=== PATIENT | male | born 1985 | race Caucasian/White ===

== ENCOUNTER 2021-02-12 14:48 | Inpatient (IN) | payer OTHER ==
[~2021-02-12 14:48] MED LIST: ceFAZolin SODIUM 1 GM VIAL IVPB ONE
[2021-02-12 17:31] LABS: BASO % 0.7 % (0-2.0); EOS % 5.3 % (0-4.5); HEMATOCRIT 20.5 % (35.4-49); HEMOGLOBIN 7.2 GM/dL (11.7-16.9); LYMPH % 10.6 % (8-40); MCH 27.6 pg (25.7-33.7); MEAN CELL VOLUME 78.9 fl (80-96); MEAN PLT VOLUME 6.8 fl (7.5-11.1); MONO % 6.5 % (3.8-10.2); NEUT % 76.9 % (42.8-82.8); PLATELET COUNT 183 K/MM3 (134-434); RDW 15.6 % (11.9-15.9); WHITE BLOOD COUNT 5.6 K/mm3 (4.0-10.0)
[2021-02-12] MEDS ORDERED: LIDOCAINE HCL 1%, 10 MG/ML (20ML VIAL) ONE (17:35)
[2021-02-12 17:42] LABS: INR 0.96 (0.83-1.09); PROTHROMBIN TIME (PATIENT) 11.6 SEC (9.7-13.0)
[2021-02-12 17:45] LABS: ACTIVATED PTT 30.1 SECONDS (25.2-36.5)
[2021-02-12 17:50] LABS: CHLORIDE 104 mmol/L (98-107); POTASSIUM 4.3 mmol/L (3.5-5.1); SODIUM 140 mmol/L (136-145)
[2021-02-12 17:52] LABS: CALCIUM 8.7 mg/dL (8.5-10.1)
[2021-02-12 17:53] LABS: ALBUMIN 3.9 g/dl (3.4-5.0); ANION GAP 15 MMOL/L (8-16); CO2 22 mmol/L (21-32); GLUCOSE,RANDOM 94 mg/dL (74-106)
[2021-02-12 17:56] LABS: SGOT/AST 5 U/L (15-37); SGPT/ALT 13 U/L (13-61)
[2021-02-12 17:57] LABS: BILIRUBIN,TOTAL 0.5 mg/dL (0.2-1)
[2021-02-12 17:58] LABS: TOT PROT 7.2 g/dl (6.4-8.2)
[2021-02-12 17:59] LABS: ALK PHOS 70 U/L (45-117)
[2021-02-12 18:06] LABS: BLOOD UREA NITROGEN 121.4 mg/dL (7-18); CREATININE 16.2 mg/dL (0.55-1.3)
[2021-02-12] MEDS ORDERED: MIDAZOLAM HCL 2 MG/2 ML SINGLE DOSE VIAL ONE (19:49)
[2021-02-12] MEDS ORDERED: KETAMINE HCL 200 MG/20 ML VIAL ONE (19:50)
[2021-02-12] MEDS ORDERED: ceFAZolin SODIUM 1 GM VIAL ONE (19:54)
[2021-02-12] MEDS: oxyCODONE HCL 5 MG TABLET PO PRN (21:46)
[2021-02-12] MEDS ORDERED: ONDANSETRON 4 MG/2 ML VIAL IVPUSH PRN (22:17)
[2021-02-12 22:54] LABS: PHOSPHOROUS 7.1 mg/dL (2.5-4.9)
[2021-02-13] MEDS ORDERED: LIDOCAINE HCL/PF 2% SDV 5ML VIAL ONE (00:30)
[2021-02-13] MEDS: ACETAMINOPHEN 325 MG TABLET (FP) PO PRN (00:52)
[2021-02-13] MEDS: oxyCODONE HCL 5 MG TABLET PO PRN (02:56)
[2021-02-13] MEDS ORDERED: methylPREDNISolone NA SUCC 125 MG/2 ML VIAL ONE (08:08)
[2021-02-13] MEDS ORDERED: EPINEPHrine/PF 1 MG/1 ML (1:1,000) AMPULE ONE (08:10)
[2021-02-13] MEDS ORDERED: EPINEPHrine/PF 1 MG/1 ML (1:1,000) AMPULE IM ONE ×3 (08:22)
[2021-02-13] MEDS ORDERED: methylPREDNISolone NA SUCC 125 MG/2 ML VIAL IVPUSH ONE (08:22)
[2021-02-13] MEDS ORDERED: ONDANSETRON 4 MG/2 ML VIAL IVPB ONE (08:51)
[2021-02-13] MEDS ORDERED: FAMOTIDINE 20 MG/50 ML IVPB 20 MG/50 ML MG IVPB ONE (08:51)
[2021-02-13] MEDS: amLODIPine BESYLATE 10 MG TABLET (FP) PO SCH (10:00)
[2021-02-13] MEDS: LABETALOL HCL 200 MG TABLET (FP) PO SCH ×2 (10:00→21:57)
[2021-02-13] MEDS ORDERED: SODIUM CHLORIDE 250 ML IV PRN ×2 (11:38→11:39)
[2021-02-13 11:55] LABS: BASO % 0.2 % (0-2.0); EOS % 0.5 % (0-4.5); HEMATOCRIT 20.8 % (35.4-49); HEMOGLOBIN 7.4 GM/dL (11.7-16.9); LYMPH % 3.7 % (8-40); MCH 27.9 pg (25.7-33.7); MCHC 35.7 g/dl (32.0-35.9); MEAN PLT VOLUME 6.8 fl (7.5-11.1); MONO % 2.5 % (3.8-10.2); NEUT % 93.1 % (42.8-82.8); PLATELET COUNT 180 K/MM3 (134-434); RBC 2.66 M/mm3 (4.00-5.60); RDW 15.9 % (11.9-15.9); RETICULOCYTES 1.32 % (0.5-1.5); WHITE BLOOD COUNT 11.6 K/mm3 (4.0-10.0)
[2021-02-13 12:24] LABS: CHLORIDE 106 mmol/L (98-107); POTASSIUM 4.5 mmol/L (3.5-5.1); SODIUM 137 mmol/L (136-145)
[2021-02-13 12:25] LABS: ANISOCYTOSIS 3+; MACROCYTOSIS 0; PLATELET ESTIMATE NORMAL
[2021-02-13 12:27] LABS: ANION GAP 11 MMOL/L (8-16); CALCIUM 8.5 mg/dL (8.5-10.1); CO2 19 mmol/L (21-32)
[2021-02-13 12:28] LABS: ALBUMIN 3.5 g/dl (3.4-5.0); GLUCOSE,RANDOM 126 mg/dL (74-106)
[2021-02-13 12:31] LABS: SGOT/AST 9 U/L (15-37); SGPT/ALT 11 U/L (13-61)
[2021-02-13 12:32] LABS: TOT PROT 6.8 g/dl (6.4-8.2)
[2021-02-13 12:33] LABS: ALK PHOS 73 U/L (45-117)
[2021-02-13 12:46] LABS: BILIRUBIN,TOTAL 0.6 mg/dL (0.2-1); BLOOD UREA NITROGEN 123.5 mg/dL (7-18); CREATININE 16.9 mg/dL (0.55-1.3)
[2021-02-13] MEDS: methylPREDNISolone NA SUCC 40 MG/1 ML VIAL IVPUSH SCH ×2 (13:39→21:58)
[2021-02-13] MEDS ORDERED: HYDROmorphone HCl 2 MG/ML VIAL IVPUSH ONE (21:37)
[2021-02-13] MEDS ORDERED: ASPIRIN 81 MG CHEWABLE TABLETS PO ONE (21:45)
[2021-02-13 22:51] LABS: CHLORIDE 99 mmol/L (98-107); POTASSIUM 3.6 mmol/L (3.5-5.1); SODIUM 136 mmol/L (136-145)
[2021-02-13 22:53] LABS: ANION GAP 13 MMOL/L (8-16); CALCIUM 8.7 mg/dL (8.5-10.1); CO2 24 mmol/L (21-32)
[2021-02-13 22:54] LABS: GLUCOSE,RANDOM 145 mg/dL (74-106)
[2021-02-13 23:08] LABS: BLOOD UREA NITROGEN 73.8 mg/dL (7-18); CREATININE 9.9 mg/dL (0.55-1.3)
[2021-02-13] MEDS ORDERED: amLODIPine BESYLATE 10 MG TABLET (FP) PO ONE (23:17)
[2021-02-14] MEDS ORDERED: oxyCODONE HCL 5 MG TABLET ONE (00:38)
[2021-02-14] MEDS: ACETAMINOPHEN 325 MG TABLET (FP) PO PRN ×3 (00:40→22:19)
[2021-02-14] MEDS ORDERED: LORazepam 2 MG/ML SDV VIAL IVPUSH ONE (02:09)
[2021-02-14] MEDS: methylPREDNISolone NA SUCC 40 MG/1 ML VIAL IVPUSH SCH ×3 (06:27→22:15)
[2021-02-14 07:04] LABS: BASO % 0.1 % (0-2.0); HEMATOCRIT 16.6 % (35.4-49); LYMPH % 3.7 % (8-40); MCH 28.5 pg (25.7-33.7); MCHC 36.7 g/dl (32.0-35.9); MEAN CELL VOLUME 77.4 fl (80-96); MEAN PLT VOLUME 7.3 fl (7.5-11.1); MONO % 1.6 % (3.8-10.2); NEUT % 94.6 % (42.8-82.8); PLATELET COUNT 131 K/MM3 (134-434); RBC 2.14 M/mm3 (4.00-5.60); RDW 15.4 % (11.9-15.9); WHITE BLOOD COUNT 7.1 K/mm3 (4.0-10.0)
[2021-02-14 07:09] LABS: HEMOGLOBIN 6.1 GM/dL (11.7-16.9)
[2021-02-14 07:24] LABS: CHLORIDE 100 mmol/L (98-107); POTASSIUM 4.2 mmol/L (3.5-5.1); SODIUM 137 mmol/L (136-145)
[2021-02-14 07:26] LABS: CALCIUM 8.3 mg/dL (8.5-10.1)
[2021-02-14 07:27] LABS: ALBUMIN 3.2 g/dl (3.4-5.0); ANION GAP 10 MMOL/L (8-16); BLOOD UREA NITROGEN 83.7 mg/dL (7-18); CO2 27 mmol/L (21-32); GLUCOSE,RANDOM 136 mg/dL (74-106); MAGNESIUM 1.9 mg/dL (1.8-2.4)
[2021-02-14 07:30] LABS: SGOT/AST 9 U/L (15-37); SGPT/ALT 9 U/L (13-61)
[2021-02-14 07:31] LABS: BILIRUBIN,TOTAL 0.5 mg/dL (0.2-1); TOT PROT 6.1 g/dl (6.4-8.2)
[2021-02-14 07:33] LABS: ALK PHOS 57 U/L (45-117)
[2021-02-14 07:47] LABS: CREATININE 11.2 mg/dL (0.55-1.3)
[2021-02-14] MEDS: LABETALOL HCL 200 MG TABLET (FP) PO SCH ×2 (09:19→22:18)
[2021-02-14] MEDS: amLODIPine BESYLATE 10 MG TABLET (FP) PO SCH (09:19)
[2021-02-14 09:57] LABS: ANISOCYTOSIS 0; MACROCYTOSIS 0; PLATELET ESTIMATE DECREASED
[2021-02-14] MEDS ORDERED: EPOETIN ALFA-EPBX 3,000 UNIT/ML VIAL SQ ONE (13:15)
[2021-02-14] MEDS ORDERED: DESMOPRESSIN ACETATE 4 MCG/ML AMP IVPB STA (15:29)
[2021-02-14 19:40] LABS: HEMATOCRIT 20.3 % (35.4-49); MCH 28.4 pg (25.7-33.7); MCHC 34.5 g/dl (32.0-35.9); MEAN CELL VOLUME 82.5 fl (80-96); MEAN PLT VOLUME 6.8 fl (7.5-11.1); PLATELET COUNT 171 K/MM3 (134-434); RBC 2.46 M/mm3 (4.00-5.60); RDW 16.6 % (11.9-15.9); WHITE BLOOD COUNT 13.9 K/mm3 (4.0-10.0)
[2021-02-14] MEDS: oxyCODONE HCL 5 MG TABLET PO PRN (22:18)
[2021-02-15] MEDS ORDERED: LORazepam 2 MG/ML SDV VIAL IVPB ONE (03:30)
[2021-02-15] MEDS ORDERED: LORazepam 2 MG/ML SDV VIAL ONE (03:46)
[2021-02-15] MEDS ORDERED: PT OWN MED DRAWER 7, Y5N ONE (07:09)
[2021-02-15] MEDS: methylPREDNISolone NA SUCC 40 MG/1 ML VIAL IVPUSH SCH (09:09)
[2021-02-15] MEDS: LABETALOL HCL 200 MG TABLET (FP) PO SCH ×3 (09:10→21:23)
[2021-02-15] MEDS: amLODIPine BESYLATE 10 MG TABLET (FP) PO SCH (09:10)
[2021-02-15 09:39] LABS: BASO % 0.1 % (0-2.0); HEMATOCRIT 21.2 % (35.4-49); HEMOGLOBIN 7.4 GM/dL (11.7-16.9); LYMPH % 4.7 % (8-40); MCH 29.1 pg (25.7-33.7); MCHC 35.1 g/dl (32.0-35.9); MEAN PLT VOLUME 7.5 fl (7.5-11.1); MONO % 7.6 % (3.8-10.2); NEUT % 87.6 % (42.8-82.8); PLATELET COUNT 184 K/MM3 (134-434); RBC 2.56 M/mm3 (4.00-5.60); RDW 16.7 % (11.9-15.9); WHITE BLOOD COUNT 7.9 K/mm3 (4.0-10.0)
[2021-02-15 09:59] LABS: ALBUMIN 3.3 g/dl (3.4-5.0); CALCIUM 8.3 mg/dL (8.5-10.1); MAGNESIUM 1.7 mg/dL (1.8-2.4)
[2021-02-15 10:03] LABS: CREATININE 6.8 mg/dL (0.55-1.3); PHOSPHOROUS 6.6 mg/dL (2.5-4.9)
[2021-02-15 10:04] LABS: BILIRUBIN,TOTAL 1.1 mg/dL (0.2-1); TOT PROT 6.2 g/dl (6.4-8.2)
[2021-02-15 10:05] LABS: BLOOD UREA NITROGEN 45.6 mg/dL (7-18)
[2021-02-15] MEDS ORDERED: MAGNESIUM SULFATE IN WATER 2 GM/50 ML IVPB IVPB ONE (12:00)
[2021-02-15 12:08] LABS: BASO % 0.1 % (0-2.0); HEMATOCRIT 21.1 % (35.4-49); HEMOGLOBIN 7.5 GM/dL (11.7-16.9); LYMPH % 4.6 % (8-40); MCH 29.6 pg (25.7-33.7); MCHC 35.6 g/dl (32.0-35.9); MEAN CELL VOLUME 82.9 fl (80-96); MEAN PLT VOLUME 7.5 fl (7.5-11.1); MONO % 8.6 % (3.8-10.2); NEUT % 86.7 % (42.8-82.8); PLATELET COUNT 187 K/MM3 (134-434); RBC 2.54 M/mm3 (4.00-5.60); RDW 16.4 % (11.9-15.9); WHITE BLOOD COUNT 7.3 K/mm3 (4.0-10.0)
[2021-02-15] MEDS: oxyCODONE HCL 5 MG TABLET PO PRN ×2 (13:11→21:23)
[2021-02-15] MEDS ORDERED: SEVELAMER CARBONATE 800 MG TAB (FP) PO SCH (14:00)
[2021-02-15] MEDS ORDERED: ONDANSETRON 4 MG/2 ML VIAL IVPUSH PRN (14:37)
[2021-02-15] MEDS ORDERED: ACETAMINOPHEN 325 MG TABLET (FP) PO PRN ×2 (14:37)
[2021-02-15] MEDS: SEVELAMER CARBONATE 800 MG TAB (FP) PO SCH (18:09)
[2021-02-15 22:42] VITALS: BMI 17.9
[2021-02-15] MEDS ORDERED: MELATONIN 5 MG TABLETS PO ONE (23:09)
[2021-02-16] MEDS: LABETALOL HCL 200 MG TABLET (FP) PO SCH ×3 (05:55→21:33)
[2021-02-16] MEDS: oxyCODONE HCL 5 MG TABLET PO PRN ×4 (05:55→23:15)
[2021-02-16 07:56] LABS: BASO % 0.1 % (0-2.0); HEMATOCRIT 22.6 % (35.4-49); LYMPH % 6.1 % (8-40); MCH 29.3 pg (25.7-33.7); MCHC 35.5 g/dl (32.0-35.9); MEAN CELL VOLUME 82.6 fl (80-96); MEAN PLT VOLUME 7.3 fl (7.5-11.1); MONO % 10.6 % (3.8-10.2); NEUT % 83.2 % (42.8-82.8); PLATELET COUNT 172 K/MM3 (134-434); RBC 2.73 M/mm3 (4.00-5.60); WHITE BLOOD COUNT 11.2 K/mm3 (4.0-10.0)
[2021-02-16 08:05] LABS: CHLORIDE 98 mmol/L (98-107); POTASSIUM 3.5 mmol/L (3.5-5.1); SODIUM 137 mmol/L (136-145)
[2021-02-16 08:09] LABS: CALCIUM 8.5 mg/dL (8.5-10.1)
[2021-02-16 08:10] LABS: ALBUMIN 3.2 g/dl (3.4-5.0); ANION GAP 10 MMOL/L (8-16); BLOOD UREA NITROGEN 68.5 mg/dL (7-18); CO2 29 mmol/L (21-32); GLUCOSE,RANDOM 101 mg/dL (74-106)
[2021-02-16 08:11] LABS: MAGNESIUM 2.3 mg/dL (1.8-2.4)
[2021-02-16 08:14] LABS: BILIRUBIN,TOTAL 0.9 mg/dL (0.2-1); PHOSPHOROUS 5.2 mg/dL (2.5-4.9); SGOT/AST 18 U/L (15-37); SGPT/ALT 18 U/L (13-61)
[2021-02-16 08:15] LABS: TOT PROT 5.9 g/dl (6.4-8.2)
[2021-02-16 08:16] LABS: ALK PHOS 50 U/L (45-117)
[2021-02-16 08:20] LABS: CREATININE 8.7 mg/dL (0.55-1.3)
[2021-02-16] MEDS: SEVELAMER CARBONATE 800 MG TAB (FP) PO SCH ×3 (08:45→17:25)
[2021-02-16] MEDS ORDERED: methylPREDNISolone NA SUCC 40 MG/1 ML VIAL IVPUSH SCH ×2 (10:00)
[2021-02-16] MEDS ORDERED: VITAMIN B COMP W-C 1 EA TABLET (NEPHRO-VITE) PO SCH (10:00)
[2021-02-16] MEDS: VITAMIN B COMP W-C 1 EA TABLET (NEPHRO-VITE) PO SCH (10:26)
[2021-02-16] MEDS: amLODIPine BESYLATE 10 MG TABLET (FP) PO SCH (10:26)
[2021-02-16 12:07] LABS: HEP B CORE AB, TOT Negative (Negative)
[2021-02-16 12:07] LABS: HEP B CORE AB, TOT Negative (Negative)
[2021-02-17] MEDS: LABETALOL HCL 200 MG TABLET (FP) PO SCH ×3 (06:30→22:04)
[2021-02-17 07:45] LABS: BASO % 0.1 % (0-2.0); EOS % 0.1 % (0-4.5); HEMOGLOBIN 7.8 GM/dL (11.7-16.9); LYMPH % 4.7 % (8-40); MCH 29.4 pg (25.7-33.7); MCHC 35.4 g/dl (32.0-35.9); MEAN CELL VOLUME 83.1 fl (80-96); MEAN PLT VOLUME 7.3 fl (7.5-11.1); MONO % 9.8 % (3.8-10.2); NEUT % 85.3 % (42.8-82.8); PLATELET COUNT 162 K/MM3 (134-434); RBC 2.65 M/mm3 (4.00-5.60); RDW 16.1 % (11.9-15.9); WHITE BLOOD COUNT 10.4 K/mm3 (4.0-10.0)
[2021-02-17 07:51] LABS: CHLORIDE 98 mmol/L (98-107); POTASSIUM 3.7 mmol/L (3.5-5.1); SODIUM 135 mmol/L (136-145)
[2021-02-17 07:54] LABS: CALCIUM 8.3 mg/dL (8.5-10.1)
[2021-02-17 07:55] LABS: ANION GAP 11 MMOL/L (8-16); BLOOD UREA NITROGEN 84.4 mg/dL (7-18); CO2 27 mmol/L (21-32); GLUCOSE,RANDOM 102 mg/dL (74-106); MAGNESIUM 2.3 mg/dL (1.8-2.4)
[2021-02-17 07:58] LABS: PHOSPHOROUS 5.8 mg/dL (2.5-4.9); SGPT/ALT 13 U/L (13-61)
[2021-02-17 07:59] LABS: SGOT/AST 9 U/L (15-37)
[2021-02-17 08:00] LABS: BILIRUBIN,TOTAL 0.7 mg/dL (0.2-1); TOT PROT 5.7 g/dl (6.4-8.2)
[2021-02-17 08:01] LABS: ALK PHOS 50 U/L (45-117)
[2021-02-17] MEDS: SEVELAMER CARBONATE 800 MG TAB (FP) PO SCH ×3 (08:14→17:13)
[2021-02-17] MEDS ORDERED: SODIUM CHLORIDE 250 ML IV PRN (08:31)
[2021-02-17] MEDS ORDERED: EPOETIN ALFA-EPBX 3,000 UNIT/ML VIAL SQ ONE (09:00)
[2021-02-17] MEDS ORDERED: EPOETIN ALFA-EPBX 3,000 UNIT/ML VIAL IVPUSH ONE (10:00)
[2021-02-17] MEDS: amLODIPine BESYLATE 10 MG TABLET (FP) PO SCH (11:37)
[2021-02-17] MEDS: VITAMIN B COMP W-C 1 EA TABLET (NEPHRO-VITE) PO SCH (11:38)
[2021-02-17] MEDS: predniSONE 20 MG TABLET (UD) PO SCH (11:38)
[2021-02-17] MEDS: oxyCODONE HCL 5 MG TABLET PO PRN ×3 (12:18→22:04)
[2021-02-18] MEDS: LABETALOL HCL 200 MG TABLET (FP) PO SCH ×2 (06:06→14:33)
[2021-02-18 07:14] LABS: BASO % 0.1 % (0-2.0); EOS % 0.1 % (0-4.5); HEMATOCRIT 23.8 % (35.4-49); HEMOGLOBIN 8.3 GM/dL (11.7-16.9); LYMPH % 4.7 % (8-40); MCH 29.4 pg (25.7-33.7); MEAN CELL VOLUME 84.2 fl (80-96); MEAN PLT VOLUME 7.3 fl (7.5-11.1); MONO % 11.4 % (3.8-10.2); NEUT % 83.7 % (42.8-82.8); PLATELET COUNT 170 K/MM3 (134-434); RBC 2.83 M/mm3 (4.00-5.60); RDW 16.3 % (11.9-15.9); WHITE BLOOD COUNT 9.9 K/mm3 (4.0-10.0)
[2021-02-18 07:28] LABS: POTASSIUM 3.9 mmol/L (3.5-5.1)
[2021-02-18 07:34] LABS: CALCIUM 8.3 mg/dL (8.5-10.1); MAGNESIUM 2.1 mg/dL (1.8-2.4)
[2021-02-18 07:38] LABS: BILIRUBIN,TOTAL 0.8 mg/dL (0.2-1); PHOSPHOROUS 4.1 mg/dL (2.5-4.9)
[2021-02-18 07:43] LABS: BLOOD UREA NITROGEN 40.9 mg/dL (7-18)
[2021-02-18] MEDS: SEVELAMER CARBONATE 800 MG TAB (FP) PO SCH ×2 (08:54→12:05)
[2021-02-18] MEDS: amLODIPine BESYLATE 10 MG TABLET (FP) PO SCH (10:08)
[2021-02-18] MEDS: predniSONE 20 MG TABLET (UD) PO SCH (10:08)
[2021-02-18] MEDS: VITAMIN B COMP W-C 1 EA TABLET (NEPHRO-VITE) PO SCH (10:08)
[2021-02-18] MEDS: oxyCODONE HCL 5 MG TABLET PO PRN (10:09)
[2021-02-18 10:13] VITALS: BP 155/95; PULSE 83; TEMP 98.9
== END 2021-02-18 17:18 | disposition home or self-care (01) | DRG 470 ==
LOC: JER 14:48 → JERBED 16:18 → J8W 21:33 → JICU 02-13 08:43 → J4S 02-15 15:57
PROVIDERS: ADMIT Hospitalist; ATTEND Internal Medicine
PROC: 02HV33Z Insertion of Infusion Device into Superior Vena Cava, Percutaneous Approach (ICD-10-PCS; 2021-02-12)
PROC: B548ZZA Ultrasonography of Superior Vena Cava, Guidance (ICD-10-PCS; 2021-02-12)
PROC: 0JH63XZ Insertion of Tunneled Vascular Access Device into Chest Subcutaneous Tissue and Fascia, Percutaneous Approach (ICD-10-PCS; principal; 2021-02-12 19:00)
PROC: 5A1D70Z Performance of Urinary Filtration, Intermittent, Less than 6 Hours Per Day (ICD-10-PCS; 2021-02-13)
PROC: 30233N1 Transfusion of Nonautologous Red Blood Cells into Peripheral Vein, Percutaneous Approach (ICD-10-PCS; 2021-02-14)
PROC: 5A1D70Z Performance of Urinary Filtration, Intermittent, Less than 6 Hours Per Day (ICD-10-PCS; 2021-02-14)
PROC: 5A1D70Z Performance of Urinary Filtration, Intermittent, Less than 6 Hours Per Day (ICD-10-PCS; 2021-02-17)
DX: I12.0 Hypertensive chronic kidney disease with stage 5 chronic kidney disease or end stage renal disease (principal); N17.9 Acute kidney failure, unspecified; I24.8 Other forms of acute ischemic heart disease; T78.2XXA Anaphylactic shock, unspecified, initial encounter; T78.3XXA Angioneurotic edema, initial encounter; T88.8XXA Other specified complications of surgical and medical care, not elsewhere classified, initial encounter; Y83.8 Other surgical procedures as the cause of abnormal reaction of the patient, or of later complication, without mention of misadventure at the time of the procedure; N18.6 End stage renal disease; Z99.2 Dependence on renal dialysis; D62 Acute posthemorrhagic anemia; R00.0 Tachycardia, unspecified; I43 Cardiomyopathy in diseases classified elsewhere; D63.1 Anemia in chronic kidney disease
CPT/HCPCS: 36415; 36430; 36511; 71045-TC-FY; 80048; 80053; 82550; 82607; 82728; 82746; 83540; 83550; 83735; 84100; 84484; 85025; 85027; 85045; 85610; 85730; 86704; 86706; 86707; 86708; 86709; 86803; 86850; 86900; 86901; 86922; 87340; 87522; 93005; 93010; 93306-TC; 94760; 97116-GP; 97161-GP; 99285-25; C9803; J1644; J2597; P9034; P9038; P9058; Q5106; U0003; U0005

== ENCOUNTER 2021-02-27 11:33 | Emergency (ER) | payer OTHER ==
[2021-02-27 11:51] VITALS: BP 112/82; PULSE 99; TEMP 98.5; BMI 18.8
== END 2021-02-27 13:20 | disposition home or self-care (01) ==
LOC: JER 11:33
DX: K40.90 Unilateral inguinal hernia, without obstruction or gangrene, not specified as recurrent (principal)
CPT/HCPCS: 99281-25

== ENCOUNTER 2021-04-17 10:09 | Observation (INO) | payer OTHER ==
[2021-04-17 11:13] LABS: BASO % 0.5 % (0-2.0); EOS % 2.6 % (0-4.5); HEMATOCRIT 29.5 % (35.4-49); HEMOGLOBIN 10.3 GM/dL (11.7-16.9); LYMPH % 11.1 % (8-40); MCH 30.2 pg (25.7-33.7); MCHC 34.9 g/dl (32.0-35.9); MEAN CELL VOLUME 86.4 fl (80-96); MEAN PLT VOLUME 6.9 fl (7.5-11.1); MONO % 8.3 % (3.8-10.2); NEUT % 77.5 % (42.8-82.8); PLATELET COUNT 223 K/MM3 (134-434); RBC 3.41 M/mm3 (4.00-5.60); WHITE BLOOD COUNT 7.1 K/mm3 (4.0-10.0)
[2021-04-17 11:19] LABS: INR 0.97 (0.83-1.09); PROTHROMBIN TIME (PATIENT) 11.8 SEC (9.7-13.0)
[2021-04-17 11:22] LABS: ACTIVATED PTT 29.5 SECONDS (25.2-36.5)
[2021-04-17 11:34] LABS: CHLORIDE 99 mmol/L (98-107); SODIUM 137 mmol/L (136-145)
[2021-04-17 11:37] LABS: ANION GAP 12 MMOL/L (8-16); BLOOD UREA NITROGEN 42.2 mg/dL (7-18); CO2 26 mmol/L (21-32); GLUCOSE,RANDOM 83 mg/dL (74-106)
[2021-04-17 11:41] LABS: BILIRUBIN,TOTAL 0.7 mg/dL (0.2-1); SGOT/AST 14 U/L (15-37); SGPT/ALT 15 U/L (13-61)
[2021-04-17 11:43] LABS: ALK PHOS 102 U/L (45-117); TOT PROT 7.3 g/dl (6.4-8.2)
[2021-04-17 11:44] LABS: CREATININE 8.2 mg/dL (0.55-1.3)
[2021-04-17] MEDS ORDERED: ACETAMINOPHEN 325 MG TABLET (FP) PO PRN (17:39)
[2021-04-17] MEDS: CALCIUM ACETATE 667 MG CAPSULE (FP) PO SCH (17:47)
[2021-04-17] MEDS: LABETALOL HCL 200 MG TABLET (FP) PO SCH (21:32)
[2021-04-17] MEDS: HEPARIN NA (PORCINE) 5,000 UNITS/ML 1ML VIAL SQ SCH (21:36)
[2021-04-17] MEDS ORDERED: LABETALOL HCL 100 MG TABLET (FP) PO SCH (22:00)
[2021-04-17 23:59] VITALS: BMI 18.5
[2021-04-18] MEDS: HEPARIN NA (PORCINE) 5,000 UNITS/ML 1ML VIAL SQ SCH ×3 (06:14→21:48)
[2021-04-18] MEDS: LABETALOL HCL 200 MG TABLET (FP) PO SCH ×3 (06:14→21:48)
[2021-04-18 07:11] LABS: HEMATOCRIT 27.2 % (35.4-49); HEMOGLOBIN 9.8 GM/dL (11.7-16.9); MCH 30.8 pg (25.7-33.7); MEAN CELL VOLUME 85.5 fl (80-96); MEAN PLT VOLUME 6.7 fl (7.5-11.1); PLATELET COUNT 198 K/MM3 (134-434); RBC 3.18 M/mm3 (4.00-5.60); RDW 15.4 % (11.9-15.9); WHITE BLOOD COUNT 4.6 K/mm3 (4.0-10.0)
[2021-04-18 07:36] LABS: CHLORIDE 99 mmol/L (98-107); SODIUM 135 mmol/L (136-145)
[2021-04-18 07:59] LABS: CALCIUM 8.6 mg/dL (8.5-10.1)
[2021-04-18 08:00] LABS: ANION GAP 12 MMOL/L (8-16); BLOOD UREA NITROGEN 53.3 mg/dL (7-18); CO2 25 mmol/L (21-32); GLUCOSE,RANDOM 80 mg/dL (74-106); MAGNESIUM 2.2 mg/dL (1.8-2.4)
[2021-04-18 08:04] LABS: PHOSPHOROUS 6.2 mg/dL (2.5-4.9)
[2021-04-18 08:08] LABS: CREATININE 10.9 mg/dL (0.55-1.3)
[2021-04-18] MEDS: CALCIUM ACETATE 667 MG CAPSULE (FP) PO SCH ×3 (08:36→18:29)
[2021-04-18] MEDS ORDERED: SODIUM CHLORIDE 250 ML IV PRN (09:09)
[2021-04-18] MEDS: amLODIPine BESYLATE 10 MG TABLET (FP) PO SCH (09:41)
[2021-04-18] MEDS ORDERED: FLU VACCINE (FLULAVAL) PF 60 MCG/0.5 ML SYRINGE 2020-2021 IM ONE (11:00)
[2021-04-18] MEDS ORDERED: PNEUMOC 13-VAL CONJ-DIP CRM/PF 0.5 ML DISP.SYRIN IM ONE (11:00)
[2021-04-19] MEDS: LABETALOL HCL 200 MG TABLET (FP) PO SCH ×2 (05:57→14:46)
[2021-04-19] MEDS: HEPARIN NA (PORCINE) 5,000 UNITS/ML 1ML VIAL SQ SCH ×2 (05:57→14:45)
[2021-04-19] MEDS: CALCIUM ACETATE 667 MG CAPSULE (FP) PO SCH ×2 (07:58→11:51)
[2021-04-19] MEDS: amLODIPine BESYLATE 10 MG TABLET (FP) PO SCH (09:44)
[2021-04-19] MEDS ORDERED: SODIUM CHLORIDE 250 ML IV PRN (11:36)
[2021-04-19 14:49] VITALS: BP 135/86; PULSE 87; TEMP 98.1
== END 2021-04-19 17:01 | disposition left against medical advice (07) ==
LOC: JER 10:09 → JERBED 14:52 → INTOOBSV 14:52 → J4W 21:07
PROVIDERS: ADMIT Student in an Organized Health Care Education/Training Program; ATTEND Internal Medicine
PROC: 3E023GC Introduction of Other Therapeutic Substance into Muscle, Percutaneous Approach (ICD-10-PCS; principal; 2021-04-17)
PROC: 3E0234Z Introduction of Serum, Toxoid and Vaccine into Muscle, Percutaneous Approach (ICD-10-PCS; 2021-04-17)
DX: I12.0 Hypertensive chronic kidney disease with stage 5 chronic kidney disease or end stage renal disease (principal); N18.6 End stage renal disease; Z99.2 Dependence on renal dialysis; Z29.9 Encounter for prophylactic measures, unspecified; Z88.8 Allergy status to other drugs, medicaments and biological substances
CPT/HCPCS: 36415; 70450-TC; 70551-TC; 71046-TC-FY; 76512; 80048; 80053; 82550; 82553; 83735; 84100; 84484; 85025; 85027; 85610; 85730; 86803; 87340; 90471; 90670; 93005; 93010; 93880-TC; 96372; 99285-25; C9803; G0378; J1644; Q2036; U0003; U0005

== ENCOUNTER 2021-04-20 09:57 | Observation (INO) | payer OTHER ==
[2021-04-20 10:09] VITALS: BMI 18.8
[2021-04-20 11:43] LABS: BASO % 1.2 % (0-2.0); EOS % 6.1 % (0-4.5); HEMATOCRIT 29.7 % (35.4-49); HEMOGLOBIN 10.4 GM/dL (11.7-16.9); LYMPH % 12.2 % (8-40); MCH 30.6 pg (25.7-33.7); MEAN CELL VOLUME 87.4 fl (80-96); MEAN PLT VOLUME 7.1 fl (7.5-11.1); MONO % 8.8 % (3.8-10.2); NEUT % 71.7 % (42.8-82.8); PLATELET COUNT 244 K/MM3 (134-434); RDW 15.4 % (11.9-15.9); WHITE BLOOD COUNT 5.7 K/mm3 (4.0-10.0)
[2021-04-20 11:56] LABS: CHLORIDE 101 mmol/L (98-107); SODIUM 138 mmol/L (136-145)
[2021-04-20 12:00] LABS: ALBUMIN 4.1 g/dl (3.4-5.0); ANION GAP 9 MMOL/L (8-16); BLOOD UREA NITROGEN 42.2 mg/dL (7-18); CALCIUM 9.3 mg/dL (8.5-10.1); CO2 29 mmol/L (21-32); GLUCOSE,RANDOM 86 mg/dL (74-106)
[2021-04-20 12:04] LABS: BILIRUBIN,TOTAL 0.7 mg/dL (0.2-1); SGOT/AST 11 U/L (15-37); SGPT/ALT 16 U/L (13-61); TOT PROT 7.4 g/dl (6.4-8.2)
[2021-04-20 12:06] LABS: ALK PHOS 103 U/L (45-117)
[2021-04-20] MEDS: HEPARIN NA (PORCINE) 5,000 UNITS/ML 1ML VIAL SQ SCH (17:49)
[2021-04-20] MEDS ORDERED: SODIUM CHLORIDE 250 ML IV PRN (19:26)
[2021-04-20] MEDS: amLODIPine BESYLATE 10 MG TABLET (FP) PO SCH (20:45)
[2021-04-20] MEDS ORDERED: LABETALOL HCL 100 MG TABLET (FP) PO SCH (22:00)
[2021-04-20] MEDS: LABETALOL HCL 100 MG TABLET (FP) PO SCH (22:29)
[2021-04-21] MEDS: HEPARIN NA (PORCINE) 5,000 UNITS/ML 1ML VIAL SQ SCH ×2 (03:00→09:09)
[2021-04-21 03:24] VITALS: PULSE 89
[2021-04-21] MEDS: LABETALOL HCL 100 MG TABLET (FP) PO SCH ×2 (05:29→14:04)
[2021-04-21 05:43] VITALS: TEMP 98.4
[2021-04-21 07:11] LABS: HEMATOCRIT 30.2 % (35.4-49); HEMOGLOBIN 10.5 GM/dL (11.7-16.9); MCH 30.5 pg (25.7-33.7); MCHC 34.7 g/dl (32.0-35.9); MEAN CELL VOLUME 87.9 fl (80-96); MEAN PLT VOLUME 7.2 fl (7.5-11.1); PLATELET COUNT 226 K/MM3 (134-434); RBC 3.44 M/mm3 (4.00-5.60); RDW 15.2 % (11.9-15.9); WHITE BLOOD COUNT 5.2 K/mm3 (4.0-10.0)
[2021-04-21 07:40] LABS: ALBUMIN 3.9 g/dl (3.4-5.0); BLOOD UREA NITROGEN 22.2 mg/dL (7-18); CALCIUM 9.2 mg/dL (8.5-10.1); MAGNESIUM 2.3 mg/dL (1.8-2.4)
[2021-04-21 07:43] LABS: BILIRUBIN,TOTAL 1.2 mg/dL (0.2-1); CREATININE 6.5 mg/dL (0.55-1.3); TOT PROT 7.2 g/dl (6.4-8.2)
[2021-04-21 07:51] LABS: PHOSPHOROUS 5.1 mg/dL (2.5-4.9)
[2021-04-21] MEDS: CALCIUM ACETATE 667 MG CAPSULE (FP) PO SCH ×2 (09:08→12:32)
[2021-04-21] MEDS: amLODIPine BESYLATE 10 MG TABLET (FP) PO SCH (09:09)
[2021-04-21 15:11] VITALS: BP 127/82
== END 2021-04-21 15:11 | disposition home or self-care (01) ==
LOC: JER 09:57 → INTOOBSV 10:50 → UNDOADMOB 10:50 → JERBED 10:50 → J4W 17:34
PROVIDERS: ATTEND Internal Medicine
PROC: 3E023GC Introduction of Other Therapeutic Substance into Muscle, Percutaneous Approach (ICD-10-PCS; principal; 2021-04-20)
DX: I12.0 Hypertensive chronic kidney disease with stage 5 chronic kidney disease or end stage renal disease (principal); N18.6 End stage renal disease; Z99.2 Dependence on renal dialysis; Z29.9 Encounter for prophylactic measures, unspecified; Z87.891 Personal history of nicotine dependence
CPT/HCPCS: 36415; 80053; 82550; 82553; 83735; 84100; 84484; 85025; 85027; 93005; 93010; 96372; 99285-25; C9803; G0378; J1644; U0003; U0005

== ENCOUNTER 2021-05-03 17:50 | Inpatient (IN) | payer OTHER ==
[2021-05-03 20:26] LABS: BASO % 1.5 % (0-2.0); EOS % 1.8 % (0-4.5); HEMATOCRIT 25.3 % (35.4-49); HEMOGLOBIN 8.8 GM/dL (11.7-16.9); LYMPH % 13.9 % (8-40); MCH 29.8 pg (25.7-33.7); MCHC 34.8 g/dl (32.0-35.9); MEAN CELL VOLUME 85.5 fl (80-96); MONO % 10.6 % (3.8-10.2); NEUT % 72.2 % (42.8-82.8); PLATELET COUNT 153 10^3/uL (134-434); RBC 2.96 M/mm3 (4.00-5.60); RDW 14.4 % (11.9-15.9)
[2021-05-03] MEDS ORDERED: SODIUM CHLORIDE 0.9% 500 ML INFUS.BAG IV ONE (20:36)
[2021-05-03] MEDS ORDERED: FOLIC ACID INJECTION - 1 MG, THIAMINE HCL 100 MG, MULTIVIT INJECTION ADULT 10 ML in SOD... IVPB ONE (20:42)
[2021-05-03 20:43] LABS: CHLORIDE 104 mmol/L (98-107); SODIUM 136 mmol/L (136-145)
[2021-05-03] MEDS ORDERED: LABETALOL HCL 200 MG TABLET (FP) PO ONE (20:43)
[2021-05-03] MEDS ORDERED: MECLIZINE HCL 25 MG TABLET (FP) PO ONE (20:43)
[2021-05-03] MEDS ORDERED: LORazepam 1 MG TABLET PO ONE (20:50)
[2021-05-03 20:51] LABS: ALK PHOS 104 U/L (45-117)
[2021-05-03 21:15] LABS: ALBUMIN 3.6 g/dl (3.4-5.0); ANION GAP 17 MMOL/L (8-16); CALCIUM 8.3 mg/dL (8.5-10.1); CO2 16 mmol/L (21-32); MAGNESIUM 2.6 mg/dL (1.8-2.4)
[2021-05-03 21:16] LABS: GLUCOSE,RANDOM 81 mg/dL (74-106)
[2021-05-03 21:18] LABS: SGOT/AST 15 U/L (15-37); SGPT/ALT 19 U/L (13-61)
[2021-05-03 21:20] LABS: BILIRUBIN,TOTAL 0.3 mg/dL (0.2-1); TOT PROT 6.7 g/dl (6.4-8.2)
[2021-05-03] MEDS ORDERED: MECLIZINE HCL 25 MG TABLET (FP) ONE (21:33)
[2021-05-03] MEDS ORDERED: LORazepam 1 MG TABLET ONE (21:34)
[2021-05-03 21:53] LABS: CREATININE 19.1 mg/dL (0.55-1.3)
[2021-05-04] MEDS: LABETALOL HCL 100 MG TABLET (FP) PO SCH ×2 (05:19→17:19)
[2021-05-04 05:42] LABS: BASO % 1.2 % (0-2.0); EOS % 2.9 % (0-4.5); HEMATOCRIT 25.7 % (35.4-49); HEMOGLOBIN 8.8 GM/dL (11.7-16.9); LYMPH % 12.5 % (8-40); MCH 29.5 pg (25.7-33.7); MCHC 34.1 g/dl (32.0-35.9); MEAN CELL VOLUME 86.5 fl (80-96); MEAN PLT VOLUME 7.4 fl (7.5-11.1); MONO % 11.1 % (3.8-10.2); NEUT % 72.3 % (42.8-82.8); PLATELET COUNT 158 10^3/uL (134-434); RBC 2.97 M/mm3 (4.00-5.60); RDW 14.5 % (11.9-15.9); WHITE BLOOD COUNT 4.2 K/mm3 (4.0-10.0)
[2021-05-04 05:54] LABS: INR 0.88 (0.83-1.09); PROTHROMBIN TIME (PATIENT) 10.7 SEC (9.7-13.0)
[2021-05-04 06:00] LABS: CHLORIDE 107 mmol/L (98-107); SODIUM 140 mmol/L (136-145)
[2021-05-04 06:03] LABS: ALBUMIN 3.2 g/dl (3.4-5.0); ANION GAP 14 MMOL/L (8-16); BLOOD UREA NITROGEN 97.8 mg/dL (7-18); CALCIUM 7.7 mg/dL (8.5-10.1); CO2 18 mmol/L (21-32)
[2021-05-04 06:04] LABS: GLUCOSE,RANDOM 87 mg/dL (74-106); MAGNESIUM 2.4 mg/dL (1.8-2.4)
[2021-05-04 06:06] LABS: PHOSPHOROUS 6.1 mg/dL (2.5-4.9); SGOT/AST 15 U/L (15-37); SGPT/ALT 19 U/L (13-61)
[2021-05-04 06:08] LABS: BILIRUBIN,TOTAL 0.2 mg/dL (0.2-1); TOT PROT 6.2 g/dl (6.4-8.2)
[2021-05-04 06:09] LABS: ALK PHOS 96 U/L (45-117)
[2021-05-04] MEDS ORDERED: PANTOPRAZOLE 40 MG TABLET ONE (10:49)
[2021-05-04] MEDS ORDERED: amLODIPine BESYLATE 5 MG TABLET (FP) ONE (10:50)
[2021-05-04] MEDS ORDERED: PANTOPRAZOLE SODIUM 40 MG VIAL ONE (10:51)
[2021-05-04] MEDS: CALCIUM ACETATE 667 MG CAPSULE (FP) PO SCH ×3 (10:54→18:06)
[2021-05-04] MEDS: amLODIPine BESYLATE 5 MG TABLET (FP) PO SCH (10:54)
[2021-05-04] MEDS: PANTOPRAZOLE SODIUM 40 MG VIAL IVPUSH SCH (10:55)
[2021-05-04] MEDS ORDERED: SODIUM CHLORIDE 250 ML IV PRN (11:28)
[2021-05-04] MEDS ORDERED: LABETALOL HCL 100 MG TABLET (FP) PO ONE (18:25)
[2021-05-04] MEDS: ATORVASTATIN CA 80 MG TABLET (FP) PO SCH (22:04)
[2021-05-04] MEDS: LABETALOL HCL 200 MG TABLET (FP) PO SCH (22:04)
[2021-05-05] MEDS ORDERED: MELATONIN 5 MG TABLETS PO ONE (02:30)
[2021-05-05] MEDS: CALCIUM ACETATE 667 MG CAPSULE (FP) PO SCH ×3 (08:54→17:06)
[2021-05-05 09:05] LABS: HEMATOCRIT 24.4 % (35.4-49); HEMOGLOBIN 8.3 GM/dL (11.7-16.9); MCH 29.3 pg (25.7-33.7); MCHC 34.2 g/dl (32.0-35.9); MEAN CELL VOLUME 85.9 fl (80-96); MEAN PLT VOLUME 7.8 fl (7.5-11.1); PLATELET COUNT 175 10^3/uL (134-434); RBC 2.84 M/mm3 (4.00-5.60)
[2021-05-05] MEDS: LABETALOL HCL 200 MG TABLET (FP) PO SCH ×2 (09:13→21:33)
[2021-05-05] MEDS: amLODIPine BESYLATE 5 MG TABLET (FP) PO SCH (09:13)
[2021-05-05] MEDS: PANTOPRAZOLE SODIUM 40 MG VIAL IVPUSH SCH (09:14)
[2021-05-05] MEDS ORDERED: LABETALOL HCL 100 MG TABLET (FP) PO SCH (10:00)
[2021-05-05 10:12] LABS: CHLORIDE 101 mmol/L (98-107); SODIUM 140 mmol/L (136-145)
[2021-05-05 10:38] LABS: CALCIUM 7.2 mg/dL (8.5-10.1)
[2021-05-05 10:39] LABS: ANION GAP 14 MMOL/L (8-16); CO2 24 mmol/L (21-32); GLUCOSE,RANDOM 74 mg/dL (74-106)
[2021-05-05 10:40] LABS: BLOOD UREA NITROGEN 44.6 mg/dL (7-18); CREATININE 11.7 mg/dL (0.55-1.3)
[2021-05-05] MEDS ORDERED: BISACODYL 5 MG TABLET.DR (FP) PO ONE (16:00)
[2021-05-05 16:47] VITALS: BMI 17.6
[2021-05-05] MEDS ORDERED: PEG 3350/NA SULF BICARB CL/KCL 4000 ML SOLN.RECON PO ONE (17:00)
[2021-05-05 17:14] LABS: IRON SERUM 146 ug/dL (50-175); TOTAL IRON BINDING CAPACITY 174 ug/dL (250-450)
[2021-05-05] MEDS: ATORVASTATIN CA 80 MG TABLET (FP) PO SCH (21:33)
[2021-05-05] MEDS: MELATONIN 5 MG TABLETS PO SCH (21:33)
[2021-05-06 09:06] LABS: HEMATOCRIT 24.1 % (35.4-49); HEMOGLOBIN 8.5 GM/dL (11.7-16.9); MCH 30.2 pg (25.7-33.7); MCHC 35.1 g/dl (32.0-35.9); MEAN PLT VOLUME 7.7 fl (7.5-11.1); PLATELET COUNT 186 10^3/uL (134-434); RDW 14.3 % (11.9-15.9)
[2021-05-06] MEDS: CALCIUM ACETATE 667 MG CAPSULE (FP) PO SCH ×3 (09:24→19:28)
[2021-05-06 09:25] LABS: CHLORIDE 99 mmol/L (98-107); SODIUM 137 mmol/L (136-145)
[2021-05-06 09:35] LABS: ANION GAP 13 MMOL/L (8-16); CALCIUM 7.6 mg/dL (8.5-10.1); CO2 26 mmol/L (21-32); GLUCOSE,RANDOM 75 mg/dL (74-106)
[2021-05-06 09:39] LABS: CREATININE 14.5 mg/dL (0.55-1.3)
[2021-05-06] MEDS: PANTOPRAZOLE 20 MG TABLET PO SCH (12:33)
[2021-05-06] MEDS: LABETALOL HCL 200 MG TABLET (FP) PO SCH ×2 (12:43→21:31)
[2021-05-06] MEDS: amLODIPine BESYLATE 5 MG TABLET (FP) PO SCH (12:43)
[2021-05-06] MEDS ORDERED: SODIUM CHLORIDE 250 ML IV PRN (15:00)
[2021-05-06] MEDS ORDERED: EPOETIN ALFA-EPBX 4,000 UNIT/ML VIAL SQ ONE (16:30)
[2021-05-06] MEDS: ATORVASTATIN CA 80 MG TABLET (FP) PO SCH (21:31)
[2021-05-06] MEDS: MELATONIN 5 MG TABLETS PO SCH (21:32)
[2021-05-07] MEDS: CALCIUM ACETATE 667 MG CAPSULE (FP) PO SCH ×2 (08:50→12:21)
[2021-05-07 09:14] LABS: HEMATOCRIT 24.2 % (35.4-49); HEMOGLOBIN 8.5 GM/dL (11.7-16.9); MCH 29.8 pg (25.7-33.7); MEAN CELL VOLUME 85.1 fl (80-96); MEAN PLT VOLUME 7.6 fl (7.5-11.1); PLATELET COUNT 217 10^3/uL (134-434); RBC 2.85 M/mm3 (4.00-5.60); WHITE BLOOD COUNT 3.5 K/mm3 (4.0-10.0)
[2021-05-07 09:21] LABS: CHLORIDE 101 mmol/L (98-107); SODIUM 140 mmol/L (136-145)
[2021-05-07 09:31] LABS: ANION GAP 9 MMOL/L (8-16); BLOOD UREA NITROGEN 30.7 mg/dL (7-18); CALCIUM 7.7 mg/dL (8.5-10.1); CO2 30 mmol/L (21-32); GLUCOSE,RANDOM 82 mg/dL (74-106)
[2021-05-07 09:49] LABS: CREATININE 9.6 mg/dL (0.55-1.3)
[2021-05-07] MEDS ORDERED: SODIUM CHLORIDE 250 ML IV PRN (10:11)
[2021-05-07] MEDS: LABETALOL HCL 200 MG TABLET (FP) PO SCH (10:36)
[2021-05-07] MEDS: amLODIPine BESYLATE 5 MG TABLET (FP) PO SCH (10:36)
[2021-05-07] MEDS: PANTOPRAZOLE 20 MG TABLET PO SCH (10:38)
[2021-05-07 12:31] VITALS: BP 138/96; PULSE 84; TEMP 98.4
[2021-05-08] MEDS ORDERED: EPOETIN ALFA-EPBX 4,000 UNIT/ML VIAL SQ ONE (10:11)
== END 2021-05-07 13:07 | disposition home or self-care (01) | DRG 254 ==
LOC: JER 17:50 → JERBED 19:35 → J5S 05-04 17:17
PROVIDERS: ADMIT Internal Medicine; ATTEND Student in an Organized Health Care Education/Training Program
PROC: 0DB68ZX Excision of Stomach, Via Natural or Artificial Opening Endoscopic, Diagnostic (ICD-10-PCS; principal; 2021-05-05 14:15)
PROC: 0DJD8ZZ Inspection of Lower Intestinal Tract, Via Natural or Artificial Opening Endoscopic (ICD-10-PCS; 2021-05-06)
DX: K92.1 Melena (principal); I12.0 Hypertensive chronic kidney disease with stage 5 chronic kidney disease or end stage renal disease; N18.6 End stage renal disease; Z99.2 Dependence on renal dialysis; F41.9 Anxiety disorder, unspecified; D63.1 Anemia in chronic kidney disease; R63.4 Abnormal weight loss; Z68.1 Body mass index [BMI] 19.9 or less, adult; H53.8 Other visual disturbances; R26.9 Unspecified abnormalities of gait and mobility; K40.90 Unilateral inguinal hernia, without obstruction or gangrene, not specified as recurrent; K29.60 Other gastritis without bleeding; K64.8 Other hemorrhoids; N28.1 Cyst of kidney, acquired; K21.00 Gastro-esophageal reflux disease with esophagitis, without bleeding; K44.9 Diaphragmatic hernia without obstruction or gangrene; D13.1 Benign neoplasm of stomach
CPT/HCPCS: 36415; 70551-TC; 74178-TC; 80048; 80053; 82272; 82550; 82728; 83540; 83550; 83735; 84100; 84484; 85025; 85027; 85610; 85730; 86850; 86900; 86901; 93005; 93010; 99285-25; C9803; Q5106; Q9967; U0003; U0005